=== PATIENT | female | born 1955 | race Caucasian/White ===

== ENCOUNTER 2022-07-18 14:35 | Inpatient (IN) | payer BC, OTHER ==
[2022-07-18] MEDS ORDERED: LABETALOL HCL 5 MG/1 ML (100MG/20 ML VIAL) IVPUSH ONE ×3 (15:38→21:32)
[2022-07-18] MEDS ORDERED: LABETALOL HCL 20 MG/4 ML VIAL ONE ×2 (16:05→21:51)
[2022-07-18 16:14] LABS: BASO % 0.4 % (0-2.0); EOS % 1.3 % (0-4.5); HEMATOCRIT 38.4 % (32.4-45.2); MCH 30.8 pg (25.7-33.7); MCHC 33.9 g/dl (32.0-36.0); MEAN PLT VOLUME 7.9 fl (7.5-11.1); MONO % 6.9 % (3.8-10.2); NEUT % 75.4 % (42.8-82.8); PLATELET COUNT 233 10^3/uL (134-434); RBC 4.21 M/mm3 (3.60-5.2); RDW 13.6 % (11.6-15.6); WHITE BLOOD COUNT 8.3 K/mm3 (4.0-10.0)
[2022-07-18 16:34] LABS: POTASSIUM 4.9 mmol/L (3.5-5.1)
[2022-07-18 16:36] LABS: ALBUMIN 3.8 g/dl (3.4-5.0); CALCIUM 9.4 mg/dL (8.5-10.1); INR 1.05 (0.83-1.09); PROTHROMBIN TIME (PATIENT) 12.2 SEC (9.7-13.0)
[2022-07-18 16:37] LABS: BLOOD UREA NITROGEN 19.3 mg/dL (7-18)
[2022-07-18 16:40] LABS: CREATININE 1.3 mg/dL (0.55-1.3)
[2022-07-18 16:41] LABS: BILIRUBIN,TOTAL 0.4 mg/dL (0.2-1); TOT PROT 7.5 g/dl (6.4-8.2)
[2022-07-18] MEDS ORDERED: SODIUM CHLORIDE 0.9% 500 ML INFUS.BAG IV ONE (16:41)
[2022-07-18] MEDS ORDERED: METOCLOPRAMIDE HCL INJECTION 10 MG/2 ML VIAL IVPB ONE (16:41)
[2022-07-18] MEDS ORDERED: ACETAMINOPHEN 1000 MG/100 ML BAG IVPB ONE (16:41)
[2022-07-18] MEDS ORDERED: METOCLOPRAMIDE HCL INJECTION 10 MG/2 ML VIAL ONE (16:52)
[2022-07-18] MEDS ORDERED: ACETAMINOPHEN INJECTION 100 ML IVPB ONE (16:53)
[2022-07-18] MEDS ORDERED: ASPIRIN 81 MG CHEWABLE TABLETS PO ONE (17:07)
[2022-07-18 17:24] LABS: EPI CELLS 18 /uL (0-25.1); HYALINE CASTS 0 /uL (0-3.1); URINE APPEARANCE CLEAR; URINE BACTERIA 172 /uL (0-1359); URINE BILIRUBIN NEGATIVE (NEGATIVE); URINE COLOR YELLOW; URINE GLUCOSE (UA) NEGATIVE (NEGATIVE); URINE KETONE NEGATIVE (NEGATIVE); URINE LEUK ESTERASE 1+ (NEGATIVE); URINE NITRITE NEGATIVE (NEGATIVE); URINE PROTEIN 2+ (NEGATIVE); URINE RBC 5 /uL (0-23.9); URINE UROBILINOGEN 0.2 mg/dL (0.2-1.0); URINE WBC 42 /uL (0-25.8)
[2022-07-18] MEDS ORDERED: ASPIRIN 81 MG CHEWABLE TABLETS ONE (17:49)
[2022-07-18] MEDS ORDERED: NITROGLYCERIN SUBLINGUAL 1/150 0.4 MG TAB SL ONE (21:32)
[2022-07-18] MEDS ORDERED: NITROGLYCERIN SUBLINGUAL 1/150 0.4 MG TAB ONE (21:51)
[2022-07-19] MEDS ORDERED: NITROGLYCERIN 2% OINTMENT - 1GM PACKET TD ONE (00:17)
[2022-07-19] MEDS ORDERED: hydrALAZINE HCL 20 MG/ML VIAL IVPUSH ONE ×2 (00:28→02:07)
[2022-07-19] MEDS ORDERED: hydrALAZINE HCL 20 MG/ML VIAL ONE (00:35)
[2022-07-19] MEDS ORDERED: LABETALOL HCL 5 MG/1 ML (100MG/20 ML VIAL) IVPUSH ONE (02:49)
[2022-07-19 02:54] VITALS: BMI 21.2
[2022-07-19] MEDS ORDERED: LORazepam 2 MG/ML SDV VIAL IVPUSH PRN (03:30)
[2022-07-19] MEDS ORDERED: ACETAMINOPHEN 325 MG TABLET (FP) PO PRN (03:37)
[2022-07-19 07:52] LABS: BASO % 1.4 % (0-2.0); EOS % 3.6 % (0-4.5); HEMATOCRIT 35.1 % (32.4-45.2); HEMOGLOBIN 12.4 GM/dL (10.7-15.3); MCHC 35.4 g/dl (32.0-36.0); MEAN CELL VOLUME 90.3 fl (80-96); MEAN PLT VOLUME 8.7 fl (7.5-11.1); MONO % 8.1 % (3.8-10.2); NEUT % 67.9 % (42.8-82.8); PLATELET COUNT 218 10^3/uL (134-434); RBC 3.89 M/mm3 (3.60-5.2); RDW 13.4 % (11.6-15.6); WHITE BLOOD COUNT 8.7 K/mm3 (4.0-10.0)
[2022-07-19 08:08] LABS: POTASSIUM 4.1 mmol/L (3.5-5.1)
[2022-07-19 08:09] LABS: CALCIUM 8.9 mg/dL (8.5-10.1)
[2022-07-19 08:10] LABS: ALBUMIN 3.4 g/dl (3.4-5.0); BLOOD UREA NITROGEN 15.8 mg/dL (7-18)
[2022-07-19 08:13] LABS: CREATININE 1.1 mg/dL (0.55-1.3)
[2022-07-19 08:14] LABS: BILIRUBIN,TOTAL 0.5 mg/dL (0.2-1)
[2022-07-19 08:17] LABS: PHOSPHOROUS 4.3 mg/dL (2.5-4.9)
[2022-07-19 08:19] LABS: PROTHROMBIN TIME (PATIENT) 11.6 SEC (9.7-13.0)
[2022-07-19 08:21] LABS: N-TERMINAL BNP 2372.2 pg/ml (5-125)
[2022-07-19 08:22] LABS: ACTIVATED PTT 20.5 SECONDS (25.2-36.5)
[2022-07-19] MEDS ORDERED: MUPIROCIN 2% TOPICAL OINTMENT FOR DECOLONIZATION NS SCH ×2 (10:00)
[2022-07-19] MEDS ORDERED: NICOTINE 14 MG/24 HOURS TOPICAL PATCH TD SCH (10:00)
[2022-07-19] MEDS ORDERED: ENOXAPARIN NA (PORCINE) 40 MG/0.4 ML DISP.SYRIN SQ SCH (10:00)
[2022-07-19] MEDS ORDERED: METOPROLOL TARTRATE 25 MG TABLET (FP) PO SCH (10:00)
[2022-07-19] MEDS ORDERED: ENALAPRIL MALEATE 5 MG TABLET PO SCH (10:30)
[2022-07-19] MEDS ORDERED: CARVEDILOL 12.5 MG TABLET (FP) PO SCH (10:30)
[2022-07-19] MEDS ORDERED: hydrALAZINE HCL 20 MG/ML VIAL IVPUSH PRN (10:30)
[2022-07-19] MEDS: POLYETHYLENE GLYCOL (HEALTHYLAX) 3350 17 GM PACKET PO SCH ×2 (10:55→11:14)
[2022-07-19] MEDS ORDERED: ENALAPRIL MALEATE 10 MG TABLET PO ONE (14:30)
[2022-07-19 14:31] VITALS: TEMP 97.2
[2022-07-19 16:54] VITALS: BP 140/81; PULSE 62; RESP 16
[2022-07-19] MEDS ORDERED: CHLORHEXIDINE GLUCONATE 4% CLEANSER FOR DECOLONIZATION TP SCH ×2 (22:00)
[2022-07-20] MEDS ORDERED: ENALAPRIL MALEATE 5 MG TABLET PO SCH (10:00)
[2022-07-20] MEDS ORDERED: ENALAPRIL MALEATE 10 MG TABLET PO SCH (10:00)
== END 2022-07-19 15:45 | disposition home or self-care (01) | DRG 305 ==
LOC: JER 14:35 → JERBED 18:13 → JICU 07-19 02:38
PROVIDERS: ADMIT Internal Medicine Pulmonary Disease; ATTEND Internal Medicine Pulmonary Disease
DX: I16.1 Hypertensive emergency (principal); N17.9 Acute kidney failure, unspecified; I24.8 Other forms of acute ischemic heart disease; I45.10 Unspecified right bundle-branch block; F17.210 Nicotine dependence, cigarettes, uncomplicated; I65.23 Occlusion and stenosis of bilateral carotid arteries; F41.9 Anxiety disorder, unspecified; H93.19 Tinnitus, unspecified ear
CPT/HCPCS: 0241U-QW; 36415; 70450-TC; 70496-TC; 70498-TC; 71046-TC-FY; 71250-TC; 72125-TC; 80053; 80061; 81003; 82550; 82553; 83036; 83605; 83735; 83880; 84100; 84244; 84436; 84443; 84484; 85025; 85610; 85730; 86850; 86900; 86901; 93005; 93010; 99285-25

== ENCOUNTER 2022-07-27 12:12 | Emergency (ER) | payer OTHER ==
[2022-07-27 12:25] VITALS: TEMP 97.9; BMI 22.4
[2022-07-27 13:55] LABS: BASO % 0.3 % (0-2.0); EOS % 2.3 % (0-4.5); HEMATOCRIT 32.6 % (32.4-45.2); HEMOGLOBIN 11.5 GM/dL (10.7-15.3); LYMPH % 14.4 % (8-40); MCH 32.2 pg (25.7-33.7); MCHC 35.3 g/dl (32.0-36.0); MEAN PLT VOLUME 9.6 fl (7.5-11.1); MONO % 8.1 % (3.8-10.2); NEUT % 74.9 % (42.8-82.8); PLATELET COUNT 211 10^3/uL (134-434); RBC 3.58 M/mm3 (3.60-5.2); RDW 13.5 % (11.6-15.6); WHITE BLOOD COUNT 8.8 K/mm3 (4.0-10.0)
[2022-07-27 14:01] LABS: CHLORIDE 111 mmol/L (98-107); POTASSIUM 4.9 mmol/L (3.5-5.1); SODIUM 138 mmol/L (136-145)
[2022-07-27 14:03] LABS: CALCIUM 8.6 mg/dL (8.5-10.1); EPI CELLS 5 /uL (0-25.1); GLUCOSE,RANDOM 107 mg/dL (74-106); HYALINE CASTS 0 /uL (0-3.1); PH,URINE 5.5 (5.0-8.0); URINE APPEARANCE CLEAR; URINE BACTERIA 86 /uL (0-1359); URINE BILIRUBIN NEGATIVE (NEGATIVE); URINE COLOR YELLOW; URINE GLUCOSE (UA) NEGATIVE (NEGATIVE); URINE KETONE NEGATIVE (NEGATIVE); URINE LEUK ESTERASE NEGATIVE (NEGATIVE); URINE NITRITE NEGATIVE (NEGATIVE); URINE PROTEIN 2+ (NEGATIVE); URINE RBC 9 /uL (0-23.9); URINE UROBILINOGEN 0.2 mg/dL (0.2-1.0); URINE WBC 11 /uL (0-25.8)
[2022-07-27 14:04] LABS: ALBUMIN 3.4 g/dl (3.4-5.0); ANION GAP 4 MMOL/L (8-16); BLOOD UREA NITROGEN 20.9 mg/dL (7-18); CO2 24 mmol/L (21-32); MAGNESIUM 2.2 mg/dL (1.8-2.4)
[2022-07-27 14:06] LABS: SGPT/ALT 18 U/L (13-61)
[2022-07-27 14:07] LABS: CREATININE 1.3 mg/dL (0.55-1.3); SGOT/AST 14 U/L (15-37)
[2022-07-27 14:08] LABS: TOT PROT 6.7 g/dl (6.4-8.2)
[2022-07-27 14:10] LABS: ALK PHOS 67 U/L (45-117)
[2022-07-27 14:12] LABS: N-TERMINAL BNP 858.7 pg/ml (5-125)
[2022-07-27] MEDS ORDERED: SODIUM CHLORIDE 0.9% 500 ML INFUS.BAG IV ONE (14:14)
[2022-07-27 14:25] LABS: BILIRUBIN,TOTAL 0.4 mg/dL (0.2-1)
[2022-07-27] MEDS ORDERED: ENALAPRIL MALEATE 5 MG TABLET PO ONE (14:38)
[2022-07-27] MEDS ORDERED: ENALAPRIL MALEATE 5 MG TABLET ONE (15:11)
[2022-07-27 16:25] VITALS: BP 188/87; PULSE 52; RESP 16
== END 2022-07-27 16:49 | disposition home or self-care (01) ==
LOC: JER 12:12
DX: I10 Essential (primary) hypertension (principal); R68.2 Dry mouth, unspecified; Z20.822 Contact with and (suspected) exposure to COVID-19
CPT/HCPCS: 0241U-QW; 36415; 71045-TC-FY; 80053; 81003; 82550; 83735; 83880; 84484; 85025; 87086; 93005; 93010; 99285-25

== ENCOUNTER 2023-01-03 11:47 | Observation (INO) | payer OTHER ==
[2023-01-03 12:01] VITALS: BMI 22.4
[2023-01-03] MEDS ORDERED: SODIUM CHLORIDE 0.9% 500 ML INFUS.BAG IV ONE (12:58)
[2023-01-03] MEDS ORDERED: ACETAMINOPHEN 1000 MG/100 ML BAG IVPB ONE (12:58)
[2023-01-03] MEDS ORDERED: ACETAMINOPHEN INJECTION 100 ML IVPB ONE (13:07)
[2023-01-03 13:21] LABS: HEMATOCRIT 33.1 % (32.4-45.2); HEMOGLOBIN 11.2 GM/dL (10.7-15.3); MCH 31.8 pg (25.7-33.7); MCHC 33.9 g/dl (32.0-36.0); MEAN CELL VOLUME 93.8 fl (80-96); MEAN PLT VOLUME 8.5 fl (7.5-11.1); PLATELET COUNT 291 10^3/uL (134-434); RBC 3.53 M/mm3 (3.60-5.2); RDW 12.8 % (11.6-15.6); WHITE BLOOD COUNT 9.2 K/mm3 (4.0-10.0)
[2023-01-03 13:49] LABS: ALBUMIN 4.1 g/dl (3.4-5.0); BLOOD UREA NITROGEN 25.6 mg/dL (7-18); CALCIUM 9.2 mg/dL (8.5-10.1)
[2023-01-03 13:54] LABS: BILIRUBIN,TOTAL 0.4 mg/dL (0.2-1)
[2023-01-03 15:11] LABS: EPI CELLS 17 /uL (0-25.1); HYALINE CASTS 0 /uL (0-3.1); URINE APPEARANCE CLEAR; URINE BACTERIA 127 /uL (0-1359); URINE BILIRUBIN NEGATIVE (NEGATIVE); URINE COLOR YELLOW; URINE GLUCOSE (UA) NEGATIVE (NEGATIVE); URINE KETONE NEGATIVE (NEGATIVE); URINE LEUK ESTERASE TRACE (NEGATIVE); URINE NITRITE NEGATIVE (NEGATIVE); URINE PROTEIN 1+ (NEGATIVE); URINE RBC 8 /uL (0-23.9); URINE UROBILINOGEN 0.2 mg/dL (0.2-1.0); URINE WBC 41 /uL (0-25.8)
[2023-01-03] MEDS ORDERED: LACTATED RINGERS SOLUTION 1,000 ML/1,000 ML INFUS.BAG IV SCH (17:30)
[2023-01-03] MEDS ORDERED: PANTOPRAZOLE 20 MG TABLET PO ONE (18:29)
[2023-01-03] MEDS: PANTOPRAZOLE 20 MG TABLET PO SCH (18:30)
[2023-01-03] MEDS: NICOTINE 14 MG/24 HOURS TOPICAL PATCH TD SCH (20:05)
[2023-01-03] MEDS ORDERED: HEPARIN NA (PORCINE) 5,000 UNITS/ML 1ML VIAL ONE ×2 (21:25→21:48)
[2023-01-03] MEDS: HEPARIN NA (PORCINE) 5,000 UNITS/ML 1ML VIAL SQ SCH (21:51)
[2023-01-03] MEDS ORDERED: FAMOTIDINE 20 MG TABLET PO SCH (22:00)
[2023-01-04 07:21] LABS: POTASSIUM 3.9 mmol/L (3.5-5.1)
[2023-01-04 07:25] LABS: BLOOD UREA NITROGEN 20.1 mg/dL (7-18)
[2023-01-04 07:28] LABS: CREATININE 1.6 mg/dL (0.55-1.3)
[2023-01-04] MEDS ORDERED: amLODIPine BESYLATE 10 MG TABLET (FP) PO SCH (10:00)
[2023-01-04] MEDS: HEPARIN NA (PORCINE) 5,000 UNITS/ML 1ML VIAL SQ SCH (10:30)
[2023-01-04] MEDS: NICOTINE 14 MG/24 HOURS TOPICAL PATCH TD SCH (10:30)
[2023-01-04] MEDS: PANTOPRAZOLE 20 MG TABLET PO SCH (10:30)
[2023-01-04 12:17] VITALS: BP 151/70; PULSE 70; RESP 16; TEMP 98
[2023-01-04] MEDS ORDERED: FAMOTIDINE 20 MG TABLET ONE (13:06)
== END 2023-01-04 13:10 | disposition home or self-care (01) ==
LOC: JER 11:47 → JERBED 17:06
PROVIDERS: ADMIT Internal Medicine; ATTEND Internal Medicine
PROC: 3E033NZ Introduction of Analgesics, Hypnotics, Sedatives into Peripheral Vein, Percutaneous Approach (ICD-10-PCS; principal; 2023-01-03)
PROC: 3E0337Z Introduction of Electrolytic and Water Balance Substance into Peripheral Vein, Percutaneous Approach (ICD-10-PCS; 2023-01-03)
DX: R00.2 Palpitations (principal); R10.13 Epigastric pain; I10 Essential (primary) hypertension; R77.8 Other specified abnormalities of plasma proteins; R53.1 Weakness; R25.1 Tremor, unspecified; N17.9 Acute kidney failure, unspecified; R79.89 Other specified abnormal findings of blood chemistry; I70.1 Atherosclerosis of renal artery; F17.200 Nicotine dependence, unspecified, uncomplicated
CPT/HCPCS: 0241U-QW; 36415; 80048; 80053; 81003; 84443; 84484; 85027; 87086; 93005; 93010; 96361; 96374; 99285-25; G0378

== ENCOUNTER 2023-06-15 17:17 | Emergency (ER) | payer OTHER ==
[2023-06-15 17:29] VITALS: RESP 18; BMI 21.2
[2023-06-15] MEDS ORDERED: ACETAMINOPHEN INJECTION 100 ML IVPB ONE (18:57)
[2023-06-15 19:02] LABS: EPI CELLS 8 /uL (0-25.1); HYALINE CASTS 1 /uL (0-3.1); PH,URINE 5.5 (5.0-8.0); URINE APPEARANCE CLEAR; URINE BACTERIA 108 /uL (0-1359); URINE BILIRUBIN NEGATIVE (NEGATIVE); URINE COLOR YELLOW; URINE GLUCOSE (UA) NEGATIVE (NEGATIVE); URINE KETONE NEGATIVE (NEGATIVE); URINE LEUK ESTERASE TRACE (NEGATIVE); URINE NITRITE NEGATIVE (NEGATIVE); URINE PROTEIN 2+ (NEGATIVE); URINE RBC 4 /uL (0-23.9); URINE UROBILINOGEN 0.2 mg/dL (0.2-1.0); URINE WBC 39 /uL (0-25.8)
[2023-06-15 19:03] LABS: BASO % 1.1 % (0-2.0); EOS % 1.3 % (0-4.5); HEMATOCRIT 40.1 % (32.4-45.2); HEMOGLOBIN 13.6 GM/dL (10.7-15.3); INR 1.02 (0.83-1.09); LYMPH % 20.1 % (8-40); MCH 30.3 pg (25.7-33.7); MEAN CELL VOLUME 89.3 fl (80-96); MEAN PLT VOLUME 8.1 fl (7.5-11.1); MONO % 6.5 % (3.8-10.2); PLATELET COUNT 263 10^3/uL (134-434); PROTHROMBIN TIME (PATIENT) 11.8 SEC (9.7-13.0); RBC 4.49 M/mm3 (3.60-5.2); RDW 14.1 % (11.6-15.6); WHITE BLOOD COUNT 8.9 K/mm3 (4.0-10.0)
[2023-06-15] MEDS: ACETAMINOPHEN 1000 MG/100 ML BAG IVPB ONE (19:04)
[2023-06-15] MEDS ORDERED: FAMOTIDINE 20 MG/50 ML IVPB 20 MG/50 ML MG IVPB ONE (19:12)
[2023-06-15] MEDS: DICYCLOMINE HCL 20 MG/2 ML AMPUL IM ONE (19:20)
[2023-06-15] MEDS: FAMOTIDINE 20 MG/50 ML IVPB 20 MG/50 ML MG IVPB ONE (19:20)
[2023-06-15 19:21] LABS: POTASSIUM 4.8 mmol/L (3.5-5.1)
[2023-06-15 19:22] LABS: ALBUMIN 3.9 g/dl (3.4-5.0); BLOOD UREA NITROGEN 32.4 mg/dL (7-18); CALCIUM 9.3 mg/dL (8.5-10.1); MAGNESIUM 2.4 mg/dL (1.8-2.4)
[2023-06-15 19:26] LABS: CREATININE 1.9 mg/dL (0.55-1.3)
[2023-06-15 19:27] LABS: BILIRUBIN,TOTAL 0.4 mg/dL (0.2-1); TOT PROT 7.8 g/dl (6.4-8.2)
[2023-06-15 23:14] VITALS: BP 154/76; PULSE 78; TEMP 98.2
== END 2023-06-15 23:14 | disposition home or self-care (01) ==
LOC: JER 17:17
PROC: 3E033GC Introduction of Other Therapeutic Substance into Peripheral Vein, Percutaneous Approach (ICD-10-PCS; principal; 2023-06-15)
PROC: 3E033NZ Introduction of Analgesics, Hypnotics, Sedatives into Peripheral Vein, Percutaneous Approach (ICD-10-PCS; 2023-06-15)
PROC: 3E023GC Introduction of Other Therapeutic Substance into Muscle, Percutaneous Approach (ICD-10-PCS; 2023-06-15)
DX: R10.32 Left lower quadrant pain (principal); K59.00 Constipation, unspecified; Z20.822 Contact with and (suspected) exposure to COVID-19
CPT/HCPCS: 0241U-QW; 36415; 74176-TC; 80053; 81003; 83605; 83690; 83735; 84484; 85025; 85610; 85730; 86850; 86900; 86901; 87086; 93005; 93010; 99285-25; J0131

== ENCOUNTER 2023-11-27 08:08 | Observation (INO) | payer OTHER ==
[2023-11-27 08:36] VITALS: RESP 16
[2023-11-27 09:35] LABS: BASO % 1.2 % (0-2.0); EOS % 0.9 % (0-4.5); HEMATOCRIT 43.5 % (32.4-45.2); HEMOGLOBIN 14.8 GM/dL (10.7-15.3); LYMPH % 8.5 % (8-40); MCH 30.8 pg (25.7-33.7); MCHC 34.2 g/dl (32.0-36.0); MEAN CELL VOLUME 90.1 fl (80-96); MEAN PLT VOLUME 8.3 fl (7.5-11.1); MONO % 5.7 % (3.8-10.2); NEUT % 83.7 % (42.8-82.8); PLATELET COUNT 273 10^3/uL (134-434); RBC 4.82 M/mm3 (3.60-5.2); RDW 14.2 % (11.6-15.6); WHITE BLOOD COUNT 8.7 K/mm3 (4.0-10.0)
[2023-11-27 09:48] LABS: CHLORIDE 110 mmol/L (98-107); SODIUM 139 mmol/L (136-145)
[2023-11-27 09:53] LABS: ALBUMIN 3.6 g/dl (3.4-5.0); BLOOD UREA NITROGEN 40.8 mg/dL (7-18); CALCIUM 8.9 mg/dL (8.5-10.1); CO2 26 mmol/L (21-32); GLUCOSE,RANDOM 72 mg/dL (74-106); MAGNESIUM 2.5 mg/dL (1.8-2.4)
[2023-11-27 09:55] LABS: SGOT/AST 46 U/L (15-37); SGPT/ALT 18 U/L (13-61)
[2023-11-27 09:56] LABS: CREATININE 1.8 mg/dL (0.55-1.3)
[2023-11-27 09:57] LABS: ALK PHOS 77 U/L (45-117); BILIRUBIN,TOTAL 0.4 mg/dL (0.2-1); TOT PROT 7.7 g/dl (6.4-8.2)
[2023-11-27 10:02] LABS: ANION GAP 3 mmol/L (4-13); N-TERMINAL BNP 429.5 pg/ml (5-125); POTASSIUM 6.8 mmol/L (3.5-5.1)
[2023-11-27] MEDS ORDERED: ASPIRIN 81 MG CHEWABLE TABLETS ONE (10:42)
[2023-11-27] MEDS: ASPIRIN 81 MG CHEWABLE TABLETS PO ONE (10:46)
[2023-11-27 11:28] LABS: POTASSIUM 4.3 mmol/L (3.5-5.1)
[2023-11-27 11:30] LABS: ALBUMIN 3.9 g/dl (3.4-5.0); BLOOD UREA NITROGEN 35.7 mg/dL (7-18); CALCIUM 9.4 mg/dL (8.5-10.1)
[2023-11-27 11:34] LABS: BILIRUBIN,TOTAL 0.4 mg/dL (0.2-1); CREATININE 1.7 mg/dL (0.55-1.3); TOT PROT 7.4 g/dl (6.4-8.2)
[2023-11-27 15:46] VITALS: TEMP 98.1
[2023-11-27 17:55] VITALS: BP 152/75; PULSE 52
== END 2023-11-27 17:57 | disposition home or self-care (01) ==
LOC: JER 08:08 → JERBED 14:34
PROVIDERS: ADMIT Internal Medicine; ATTEND Internal Medicine
DX: I47.10 Supraventricular tachycardia, unspecified (principal); I12.9 Hypertensive chronic kidney disease with stage 1 through stage 4 chronic kidney disease, or unspecified chronic kidney disease; R00.1 Bradycardia, unspecified; N18.9 Chronic kidney disease, unspecified; R42 Dizziness and giddiness; R00.2 Palpitations; F17.200 Nicotine dependence, unspecified, uncomplicated
CPT/HCPCS: 36415; 71046-TC-FY; 80053; 83735; 83880; 84443; 84484; 85025; 93005; 93010; 99285-25; G0378